=== PATIENT | female | born 1985 | race Caucasian/White ===

== ENCOUNTER 2017-12-12 16:42 | Emergency (ER) | payer OTHER, MEDICAID, SELFPAY ==
[2017-12-12 17:03] VITALS: BP 122/79; PULSE 56; RESP 16; TEMP 37.1; O2SAT 98; BMI 24.2
--- NOTE | 2017-12-12 18:38 | DI.CT.S_ITS ---
PROCEDURE: CT ABDOMEN PELVIS W CON INDICATIONS: 32 year-old female with abdominal pain, and prior umbilical and epigastric hernia repairs. TECHNIQUE: After the administration of intravenous contrast, 5 mm thick sections acquired from the diaphragm to the symphysis. 5 mm coronal and sagittal reformats were acquired. For radiation dose reduction, the following was used: automated exposure control, adjustment of mA and/or kV according to patient size. COMPARISON: [facility], CT, ABDOMEN/PELVIS WITH CONTRAST, 09/15/2017, 5:39. FINDINGS: Image quality: Excellent. ABDOMEN: Lung bases: Lung bases are clear. Heart size is normal. Solid organs: Liver is normal in size, with newly apparent 1.4 cm anterior left hepatic lobe enhancing lesion on image 26. Gallbladder is contracted at the time of scan. Biliary system is non dilated. Pancreas enhances normally. Spleen is normal in size and enhancement. No adrenal nodules. Kidneys demonstrate normal size and enhancement, without hydronephrosis. Peritoneum and bowel: Bowel loops demonstrate normal wall thickness and caliber. The appendix appears normal. No free fluid or air. Nodes and vessels: No retroperitoneal or mesenteric adenopathy by size criteria. Aorta and inferior vena cava are normal in size. Miscellaneous: Patient is status post interval repair of periumbilical ventral hernia, with localized fat stranding at the surgical site on axial image 33. PELVIS: Genitourinary: Bladder wall thickness is normal. Uterus and ovaries are normal in size. Previously noted dominant right ovarian cyst has resolved. 1.8 cm left ovarian corpus luteal cyst is incidentally noted. Miscellaneous: No inguinal hernias or adenopathy. Bones: No suspicious bony lesions. No vertebral body compression fractures. IMPRESSION: 1. Localized fat stranding at the periumbilical region, presumably reflecting recent ventral hernia repair. As such, superimposed surgical site infection cannot be excluded based on imaging appearances. No residual or recurrent ventral hernias. 2. 1.4 cm anterior left hepatic lobe enhancing lesion appears new since September 2017, of uncertain etiology. Consider further characterization with outpatient pre- and postcontrast liver protocol abdominal MRI, utilizing Eovist contrast. Dictated by: Neeraj Carrillo M.D. on 12/12/2017 at 20:01 Approved by: Neeraj Carrillo M.D. on 12/12/2017 at 20:09
--- NOTE | 2017-12-12 18:40 | ED.ABDPAIN ---
HPI - Abdominal Pain <SHRADDHA Loera - Last Filed: 12/12/17 20:45> General Chief Complaint: Abdominal Pain Stated Complaint: ABDOMINAL PAIN Time Seen by Provider: 12/12/17 18:32 Source: patient Mode of arrival: ambulatory Limitations: no limitations History of Present Illness MD complaint: abdominal pain Onset (ago): week(s) (2) Pain Consistency: intermittent Location: periumbilical Severity: similar to previous episodes Quality: cramping and sharp Radiation: other (shoots out to both side of belly button) Relieving factors: nothing Exacerbating factors: bowel movement and movement Context: recent surgery/procedure (had hernia surgery on 11/24 at [facility]) Associated symptoms: nausea Related Data Home Medications Medication Instructions Recorded Confirmed albuterol sulfate #0 09/15/17 fexofenadine #0 09/15/17 Previous Rx's Medication Instructions Recorded hydrocodone-acetaminophen [[place]] 1 tab PO Q6HP PRN #10 tab 09/15/17 tramadol [Ultram] 50 mg PO Q6H PRN #20 tab 12/12/17 Allergies Allergy/AdvReac Type Severity Reaction Status Date / Time clindamycin Allergy Severe Rash Verified 12/12/17 18:51 diphtheria,pertussis Allergy Unknown Unverified 12/12/17 18:51 (acell),tetanu [From KINRIX (PF)] diphtheria,pertussis Allergy Unknown Unverified 12/12/17 18:51 (acellular),te [From DAPTACEL (PEDIATRIC)] Haemophilus B polysaccharide Allergy Unknown Unverified 10/17/17 12:26 conj w [From TRIHIBIT] hepatitis B virus vaccine, Allergy Unknown Unverified 10/17/17 12:26 recombin [From PEDIARIX] latex [LATEX] Allergy Unknown Unverified 12/12/17 18:51 Penicillins [PENICILLINS] Allergy Unknown Unverified 12/12/17 18:51 tetanus and diphtheria Allergy Unknown Unverified 12/12/17 18:51 toxoids [From DECAVAC (PF)] tioconazole Allergy Unknown Unverified 12/12/17 18:51 [From MONISTAT 1 (TIOCONAZOLE)] Review of Systems <SHRADDHA Loera - Last Filed: 12/12/17 20:45> Review of Systems All systems reviewed & are unremarkable except as noted in HPI and below Constitutional Reports system reviewed and no additional complaints, except as docu and Denies fever(s) Cardiovascular Denies chest pain, Denies chest pain at rest, Denies chest pain with activity, Denies edema and Denies dyspnea Respiratory Denies dyspnea Gastrointestinal Gastrointestinal: Reports abdominal pain, Denies melena, Denies hematochezia, Denies diarrhea, Reports nausea, Denies vomiting and Denies hematemesis Genitourinary Reports as per HPI, Denies hematuria, Denies difficulty voiding, Denies dyspareunia, Denies pelvic pain and Denies flank pain Musculoskeletal Denies back pain Exam <SHRADDHA Loera - Last Filed: 12/12/17 20:45> Initial Vital Signs Initial Vital Signs: Vital Signs Temperature 98.8 F 12/12/17 17:03 Pulse Rate 56 L 12/12/17 17:03 Respiratory Rate 16 12/12/17 17:03 Blood Pressure 122/79 H 12/12/17 17:03 Pulse Oximetry 98 12/12/17 17:03 Const General: cooperative, healthy appearing, well developed, well groomed, anxious, No ill appearing, No intoxicated appearing and well hydrated Nutritional Appearance: well nourished Orientation: alert, awake, oriented x3 and not confused [facility] Head: normocephalic and atraumatic Ears: external ears normal Nose: external nose normal Face and sinus: face symmetric Mouth: oral mucosae normal and moist mucous membranes Teeth and gingiva: dentition normal Eyes General: appearance normal, both eyes and all related structures Eyelids: eyelids normal Conjunctivae: conjunctivae normal Sclera: sclerae normal Pupils: PERRL EOM: EOM intact bilaterally Neck Neck: normal visual inspection, full ROM, trachea midline and supple Chest Chest: normal inspection of the chest Resp Effort & Inspection: normal respiratory effort, able to speak in complete sentences, no respiratory distress and no use of accessory muscles Auscultation: clear to auscultation bilaterally, no rales, no rhonchi and no wheezes Cardio Rate: regular rate Rhythm: regular rhythm Heart Sounds: no click, no gallops, no murmurs and no rubs Pulses: normal peripheral pulses GI Inspection: non-distended and incision (healing surgical incision at umbilicus without s/s of infection, no erythema, no swelling, no dc, no descience) Palpation: soft, no hepatosplenomegaly, No guarding, No pulsatile mass and tender (umbilicus) Auscultation: normal bowel sounds Back/Spine/Pelvis Back: normal to inspection and No CVA tenderness Cervical Spine: cervical ROM normal and No pain with cervical ROM Thoracic/Lumbar Spine: thoracic and lumbar spine normal to inspection Skin General: no rashes or lesions noted, No jaundice and No petechiae Neuro General: alert, awake, oriented x3, gait normal and no focal motor deficits Cognition: normal cognition Speech: speech normal Gait: normal gait Motor: muscle tone normal throughout Extrem General: full ROM, no clubbing, cyanosis or edema, no pedal edema and no calf tenderness Psych Appearance: well kempt Mental Status: mental status grossly normal Attitude: cooperative Thought Content: normal and suicidality Judgment: judgment good <Marcy White DO - Last Filed: 12/13/17 04:34> Initial Vital Signs Initial Vital Signs: Vital Signs Temperature 98.8 F 12/12/17 17:03 Pulse Rate 56 L 12/12/17 17:03 Respiratory Rate 16 12/12/17 17:03 Blood Pressure 122/79 H 12/12/17 17:03 Pulse Oximetry 98 12/12/17 17:03 Course <SHRADDHA Loera - Last Filed: 12/12/17 20:45> Hospital Course: 2030 results and dc plan discussed, pt was made aware of f/u needed for spot on liver per ct Orders Ordered: Discontinued Medications Hydromorphone HCl (Dilaudid) 0.5 mg IV NOW ONE Stop: 12/12/17 20:12 Last Admin: 12/12/17 20:13 Dose: 0.5 mg Sodium Chloride (Normal Saline 0.9%) 1,000 mls @ 1,000 mls/hr IV BOLUS ONE Stop: 12/12/17 19:36 Last Infusion: 12/12/17 20:45 Dose: 0 mls/hr Admin: 12/12/17 18:53 Dose: 1,000 mls/hr Ketorolac Tromethamine (Toradol) 30 mg IV NOW ONE Stop: 12/12/17 18:38 Last Admin: 12/12/17 18:53 Dose: 30 mg Ondansetron HCl (Zofran) 4 mg IV NOW ONE Stop: 12/12/17 18:38 Last Admin: 12/12/17 18:53 Dose: 4 mg Vital Signs - 8 hr 12/12/17 20:50 12/12/17 20:55 Temperature 98.6 F Pulse Rate 75 84 Respiratory Rate 14 16 Blood Pressure 130/88 H Blood Pressure [Right Arm] 130/88 H Pulse Oximetry 98 98 <Marcy White DO - Last Filed: 12/13/17 04:34> Orders Ordered: Discontinued Medications Hydromorphone HCl (Dilaudid) 0.5 mg IV NOW ONE Stop: 12/12/17 20:12 Last Admin: 12/12/17 20:13 Dose: 0.5 mg Sodium Chloride (Normal Saline 0.9%) 1,000 mls @ 1,000 mls/hr IV BOLUS ONE Stop: 12/12/17 19:36 Last Infusion: 12/12/17 20:45 Dose: 0 mls/hr Admin: 12/12/17 18:53 Dose: 1,000 mls/hr Ketorolac Tromethamine (Toradol) 30 mg IV NOW ONE Stop: 12/12/17 18:38 Last Admin: 12/12/17 18:53 Dose: 30 mg Ondansetron HCl (Zofran) 4 mg IV NOW ONE Stop: 12/12/17 18:38 Last Admin: 12/12/17 18:53 Dose: 4 mg Vital Signs - 8 hr 12/12/17 20:50 12/12/17 20:55 Temperature 98.6 F Pulse Rate 75 84 Respiratory Rate 14 16 Blood Pressure 130/88 H Blood Pressure [Right Arm] 130/88 H Pulse Oximetry 98 98 MDM - Abdominal Pain <SHRADDHA Loera - Last Filed: 12/12/17 20:45> Differential Diagnosis Differential diagnosis: Likely abdominal pain, acute appendicitis, diverticulitis, pancreatitis, small bowel obstruction and other (hernia, post op infection, post op complication) Lab Data Attestation: I reviewed the patient's lab results. Result diagrams: 12/12/17 18:35 12/12/17 18:35 Lab Results 12/12/17 12/12/17 Range/Units 18:35 18:35 WBC 10.0 (4.5-11.0) X10^3/uL RBC 3.91 L (4.0-5.2) X10^6/uL Hgb 12.1 (12.0-16.0) g/dL Hct 35.7 L (36-46) % MCV 91.1 (80-100) fL MCH 31.0 (26-34) PG MCHC 34.0 (30-36) % RDW 13.6 (11.6-14.8) % Plt Count 221 (150-400) X10^3/uL Neut % (Auto) 67.5 (50-75) % Lymph % (Auto) 27.7 (25-40) % [place] % (Auto) 4.2 (3-14) % Eos % (Auto) 0.4 L (2-4) % Baso % (Auto) 0.2 (0-2) % Neut # (Auto) 6700 H (7806-9623) /uL Sodium 141 (137-145) mmol/L Potassium 4.0 (3.4-5.1) mmol/L Chloride 103 (98-107) mmol/L Carbon Dioxide 25 (22-32) mmol/L BUN 16 (7-17) mg/dL Creatinine 0.70 (0.52-1.04) mg/dL Estimated GFR > 60.0 (>60) mL/min BUN/Creatinine Ratio 22.9 H (6-22) Glucose 95 (70-100) mg/dL Calcium 9.4 (8.4-10.2) mg/dL Total Bilirubin 0.3 (0.2-1.3) mg/dL AST 26 (14-36) IU/L ALT 23 (9-52) IU/L Alkaline Phosphatase 56 (38-126) U/L Total Protein 7.8 (6.3-8.2) g/dL Albumin 4.7 (3.5-5.0) g/dL Globulin 3.1 (1.7-4.1) g/dL Albumin/Globulin Ratio 1.5 (1.0-2.8) Amylase 87 (30-110) U/L Lipase 142 (23-300) U/L Imaging Data CT scan - abdomen: Radiologist's impression: Patient: Betty Good MR#: [id number] : 1985 Acct:[id number] Age/Sex: 32 / F Date of Service: 12/12/17 Loc: ED Accession Number: [id number] Procedure: CT abdomen pelvis w con Ordering Provider: Livier Cruz PROCEDURE: CT ABDOMEN PELVIS W CON INDICATIONS: 32 year-old female with abdominal pain, and prior umbilical and epigastric hernia repairs. TECHNIQUE: After the administration of intravenous contrast, 5 mm thick sections acquired from the diaphragm to the symphysis. 5 mm coronal and sagittal reformats were acquired. For radiation dose reduction, the following was used: automated exposure control, adjustment of mA and/or kV according to patient size. COMPARISON: [facility], CT, ABDOMEN/PELVIS WITH CONTRAST, 09/15/2017, 5:39. FINDINGS: Image quality: Excellent. ABDOMEN: Lung bases: Lung bases are clear. Heart size is normal. Solid organs: Liver is normal in size, with newly apparent 1.4 cm anterior left hepatic lobe enhancing lesion on image 26. Gallbladder is contracted at the time of scan. Biliary system is non dilated. Pancreas enhances normally. Spleen is normal in size and enhancement. No adrenal nodules. Kidneys demonstrate normal size and enhancement, without hydronephrosis. Peritoneum and bowel: Bowel loops demonstrate normal wall thickness and caliber. The appendix appears normal. No free fluid or air. Nodes and vessels: No retroperitoneal or mesenteric adenopathy by size criteria. Aorta and inferior vena cava are normal in size. Miscellaneous: Patient is status post interval repair of periumbilical ventral hernia, with localized fat stranding at the surgical site on axial image 33. PELVIS: Genitourinary: Bladder wall thickness is normal. Uterus and ovaries are normal in size. Previously noted dominant right ovarian cyst has resolved. 1.8 cm left ovarian corpus luteal cyst is incidentally noted. Miscellaneous: No inguinal hernias or adenopathy. Bones: No suspicious bony lesions. No vertebral body compression fractures. IMPRESSION: 1. Localized fat stranding at the periumbilical region, presumably reflecting recent ventral hernia repair. As such, superimposed surgical site infection cannot be excluded based on imaging appearances. No residual or recurrent ventral hernias. 2. 1.4 cm anterior left hepatic lobe enhancing lesion appears new since September 2017, of uncertain etiology. Consider further characterization with outpatient pre- and postcontrast liver protocol abdominal MRI, utilizing Eovist contrast. Dictated by: Neeraj Carrillo M.D. on 12/12/2017 at 20:01 Approved by: Neeraj Carrillo M.D. on 12/12/2017 at 20:09 <Marcy White DO - Last Filed: 12/13/17 04:34> Lab Data Lab Results 12/12/17 12/12/17 Range/Units 18:35 18:35 WBC 10.0 (4.5-11.0) X10^3/uL RBC 3.91 L (4.0-5.2) X10^6/uL Hgb 12.1 (12.0-16.0) g/dL Hct 35.7 L (36-46) % MCV 91.1 (80-100) fL MCH 31.0 (26-34) PG MCHC 34.0 (30-36) % RDW 13.6 (11.6-14.8) % Plt Count 221 (150-400) X10^3/uL Neut % (Auto) 67.5 (50-75) % Lymph % (Auto) 27.7 (25-40) % [place] % (Auto) 4.2 (3-14) % Eos % (Auto) 0.4 L (2-4) % Baso % (Auto) 0.2 (0-2) % Neut # (Auto) 6700 H (1881-6444) /uL Sodium 141 (137-145) mmol/L Potassium 4.0 (3.4-5.1) mmol/L Chloride 103 (98-107) mmol/L Carbon Dioxide 25 (22-32) mmol/L BUN 16 (7-17) mg/dL Creatinine 0.70 (0.52-1.04) mg/dL Estimated GFR > 60.0 (>60) mL/min BUN/Creatinine Ratio 22.9 H (6-22) Glucose 95 (70-100) mg/dL Calcium 9.4 (8.4-10.2) mg/dL Total Bilirubin 0.3 (0.2-1.3) mg/dL AST 26 (14-36) IU/L ALT 23 (9-52) IU/L Alkaline Phosphatase 56 (38-126) U/L Total Protein 7.8 (6.3-8.2) g/dL Albumin 4.7 (3.5-5.0) g/dL Globulin 3.1 (1.7-4.1) g/dL Albumin/Globulin Ratio 1.5 (1.0-2.8) Amylase 87 (30-110) U/L Lipase 142 (23-300) U/L Discharge Plan Departure Patient Disposition: Home, Self-Care Clinical Impression: Abdominal pain Discharge Date/Time: 12/12/17 20:56 Interventions: ED Discharge Assessment Last Done: 12/12/17 20:55 Instructions: DI for Abdominal Pain-Adult Prescriptions: New tramadol [Ultram] 50 mg tablet 50 mg PO Q6H PRN (Reason: pain) Qty: 20 RF: 0 No Action albuterol sulfate 0.63 MG/3 ML solution for nebulization Qty: 0 RF: 0 fexofenadine 30 MG/5 ML suspension Qty: 0 RF: 0 hydrocodone-acetaminophen [[place]] 5 MG/325 MG tablet 1 tab PO Q6HP PRNQty: 10 RF: 0 Referrals: Goran Isaac MD [Physician] - (x2 days) <Marcy White DO - Last Filed: 12/13/17 04:34> Cosign ED Attending Jairature Attestation: I was immediately available in the department for consultation. Documentation has been reviewed. I agree with assessment and plan.
--- NOTE | 2017-12-12 18:47 | ED_ITS ---
HPI - Abdominal Pain <SHRADDHA Loera - Last Filed: 12/12/17 20:45> General Chief Complaint: Abdominal Pain Stated Complaint: ABDOMINAL PAIN Time Seen by Provider: 12/12/17 18:32 Source: patient Mode of arrival: ambulatory Limitations: no limitations History of Present Illness MD complaint: abdominal pain Onset (ago): week(s) (2) Pain Consistency: intermittent Location: periumbilical Severity: similar to previous episodes Quality: cramping and sharp Radiation: other (shoots out to both side of belly button) Relieving factors: nothing Exacerbating factors: bowel movement and movement Context: recent surgery/procedure (had hernia surgery on 11/24 at [facility]) Associated symptoms: nausea Related Data Home Medications Medication Instructions Recorded Confirmed albuterol sulfate #0 09/15/17 fexofenadine #0 09/15/17 Previous Rx's Medication Instructions Recorded hydrocodone-acetaminophen [[place]] 1 tab PO Q6HP PRN #10 tab 09/15/17 tramadol [Ultram] 50 mg PO Q6H PRN #20 tab 12/12/17 Allergies Allergy/AdvReac Type Severity Reaction Status Date / Time clindamycin Allergy Severe Rash Verified 12/12/17 18:51 diphtheria,pertussis Allergy Unknown Unverified 12/12/17 18:51 (acell),tetanu [From KINRIX (PF)] diphtheria,pertussis Allergy Unknown Unverified 12/12/17 18:51 (acellular),te [From DAPTACEL (PEDIATRIC)] Haemophilus B polysaccharide Allergy Unknown Unverified 10/17/17 12:26 conj w [From TRIHIBIT] hepatitis B virus vaccine, Allergy Unknown Unverified 10/17/17 12:26 recombin [From PEDIARIX] latex [LATEX] Allergy Unknown Unverified 12/12/17 18:51 Penicillins [PENICILLINS] Allergy Unknown Unverified 12/12/17 18:51 tetanus and diphtheria Allergy Unknown Unverified 12/12/17 18:51 toxoids [From DECAVAC (PF)] tioconazole Allergy Unknown Unverified 12/12/17 18:51 [From MONISTAT 1 (TIOCONAZOLE)] Review of Systems <SHRADDHA Loera - Last Filed: 12/12/17 20:45> Review of Systems All systems reviewed & are unremarkable except as noted in HPI and below Constitutional Reports system reviewed and no additional complaints, except as docu and Denies fever(s) Cardiovascular Denies chest pain, Denies chest pain at rest, Denies chest pain with activity, Denies edema and Denies dyspnea Respiratory Denies dyspnea Gastrointestinal Gastrointestinal: Reports abdominal pain, Denies melena, Denies hematochezia, Denies diarrhea, Reports nausea, Denies vomiting and Denies hematemesis Genitourinary Reports as per HPI, Denies hematuria, Denies difficulty voiding, Denies dyspareunia, Denies pelvic pain and Denies flank pain Musculoskeletal Denies back pain Exam <SHRADDHA Loera - Last Filed: 12/12/17 20:45> Initial Vital Signs Initial Vital Signs: Vital Signs Temperature 98.8 F 12/12/17 17:03 Pulse Rate 56 L 12/12/17 17:03 Respiratory Rate 16 12/12/17 17:03 Blood Pressure 122/79 H 12/12/17 17:03 Pulse Oximetry 98 12/12/17 17:03 Const General: cooperative, healthy appearing, well developed, well groomed, anxious, No ill appearing, No intoxicated appearing and well hydrated Nutritional Appearance: well nourished Orientation: alert, awake, oriented x3 and not confused [facility] Head: normocephalic and atraumatic Ears: external ears normal Nose: external nose normal Face and sinus: face symmetric Mouth: oral mucosae normal and moist mucous membranes Teeth and gingiva: dentition normal Eyes General: appearance normal, both eyes and all related structures Eyelids: eyelids normal Conjunctivae: conjunctivae normal Sclera: sclerae normal Pupils: PERRL EOM: EOM intact bilaterally Neck Neck: normal visual inspection, full ROM, trachea midline and supple Chest Chest: normal inspection of the chest Resp Effort & Inspection: normal respiratory effort, able to speak in complete sentences, no respiratory distress and no use of accessory muscles Auscultation: clear to auscultation bilaterally, no rales, no rhonchi and no wheezes Cardio Rate: regular rate Rhythm: regular rhythm Heart Sounds: no click, no gallops, no murmurs and no rubs Pulses: normal peripheral pulses GI Inspection: non-distended and incision (healing surgical incision at umbilicus without s/s of infection, no erythema, no swelling, no dc, no descience) Palpation: soft, no hepatosplenomegaly, No guarding, No pulsatile mass and tender (umbilicus) Auscultation: normal bowel sounds Back/Spine/Pelvis Back: normal to inspection and No CVA tenderness Cervical Spine: cervical ROM normal and No pain with cervical ROM Thoracic/Lumbar Spine: thoracic and lumbar spine normal to inspection Skin General: no rashes or lesions noted, No jaundice and No petechiae Neuro General: alert, awake, oriented x3, gait normal and no focal motor deficits Cognition: normal cognition Speech: speech normal Gait: normal gait Motor: muscle tone normal throughout Extrem General: full ROM, no clubbing, cyanosis or edema, no pedal edema and no calf tenderness Psych Appearance: well kempt Mental Status: mental status grossly normal Attitude: cooperative Thought Content: normal and suicidality Judgment: judgment good <Marcy White DO - Last Filed: 12/13/17 04:34> Initial Vital Signs Initial Vital Signs: Vital Signs Temperature 98.8 F 12/12/17 17:03 Pulse Rate 56 L 12/12/17 17:03 Respiratory Rate 16 12/12/17 17:03 Blood Pressure 122/79 H 12/12/17 17:03 Pulse Oximetry 98 12/12/17 17:03 Course <SHARDDHA Loera - Last Filed: 12/12/17 20:45> Hospital Course: 2030 results and dc plan discussed, pt was made aware of f/u needed for spot on liver per ct Orders Ordered: Discontinued Medications Hydromorphone HCl (Dilaudid) 0.5 mg IV NOW ONE Stop: 12/12/17 20:12 Last Admin: 12/12/17 20:13 Dose: 0.5 mg Sodium Chloride (Normal Saline 0.9%) 1,000 mls @ 1,000 mls/hr IV BOLUS ONE Stop: 12/12/17 19:36 Last Infusion: 12/12/17 20:45 Dose: 0 mls/hr Admin: 12/12/17 18:53 Dose: 1,000 mls/hr Ketorolac Tromethamine (Toradol) 30 mg IV NOW ONE Stop: 12/12/17 18:38 Last Admin: 12/12/17 18:53 Dose: 30 mg Ondansetron HCl (Zofran) 4 mg IV NOW ONE Stop: 12/12/17 18:38 Last Admin: 12/12/17 18:53 Dose: 4 mg Vital Signs - 8 hr 12/12/17 20:50 12/12/17 20:55 Temperature 98.6 F Pulse Rate 75 84 Respiratory Rate 14 16 Blood Pressure 130/88 H Blood Pressure [Right Arm] 130/88 H Pulse Oximetry 98 98 <Marcy White DO - Last Filed: 12/13/17 04:34> Orders Ordered: Discontinued Medications Hydromorphone HCl (Dilaudid) 0.5 mg IV NOW ONE Stop: 12/12/17 20:12 Last Admin: 12/12/17 20:13 Dose: 0.5 mg Sodium Chloride (Normal Saline 0.9%) 1,000 mls @ 1,000 mls/hr IV BOLUS ONE Stop: 12/12/17 19:36 Last Infusion: 12/12/17 20:45 Dose: 0 mls/hr Admin: 12/12/17 18:53 Dose: 1,000 mls/hr Ketorolac Tromethamine (Toradol) 30 mg IV NOW ONE Stop: 12/12/17 18:38 Last Admin: 12/12/17 18:53 Dose: 30 mg Ondansetron HCl (Zofran) 4 mg IV NOW ONE Stop: 12/12/17 18:38 Last Admin: 12/12/17 18:53 Dose: 4 mg Vital Signs - 8 hr 12/12/17 20:50 12/12/17 20:55 Temperature 98.6 F Pulse Rate 75 84 Respiratory Rate 14 16 Blood Pressure 130/88 H Blood Pressure [Right Arm] 130/88 H Pulse Oximetry 98 98 MDM - Abdominal Pain <SHRADDHA Loera - Last Filed: 12/12/17 20:45> Differential Diagnosis Differential diagnosis: Likely abdominal pain, acute appendicitis, diverticulitis, pancreatitis, small bowel obstruction and other (hernia, post op infection, post op complication) Lab Data Attestation: I reviewed the patient's lab results. Result diagrams: 12/12/17 18:35 12/12/17 18:35 Lab Results 12/12/17 12/12/17 Range/Units 18:35 18:35 WBC 10.0 (4.5-11.0) X10^3/uL RBC 3.91 L (4.0-5.2) X10^6/uL Hgb 12.1 (12.0-16.0) g/dL Hct 35.7 L (36-46) % MCV 91.1 (80-100) fL MCH 31.0 (26-34) PG MCHC 34.0 (30-36) % RDW 13.6 (11.6-14.8) % Plt Count 221 (150-400) X10^3/uL Neut % (Auto) 67.5 (50-75) % Lymph % (Auto) 27.7 (25-40) % [place] % (Auto) 4.2 (3-14) % Eos % (Auto) 0.4 L (2-4) % Baso % (Auto) 0.2 (0-2) % Neut # (Auto) 6700 H (0774-9583) /uL Sodium 141 (137-145) mmol/L Potassium 4.0 (3.4-5.1) mmol/L Chloride 103 (98-107) mmol/L Carbon Dioxide 25 (22-32) mmol/L BUN 16 (7-17) mg/dL Creatinine 0.70 (0.52-1.04) mg/dL Estimated GFR > 60.0 (>60) mL/min BUN/Creatinine Ratio 22.9 H (6-22) Glucose 95 (70-100) mg/dL Calcium 9.4 (8.4-10.2) mg/dL Total Bilirubin 0.3 (0.2-1.3) mg/dL AST 26 (14-36) IU/L ALT 23 (9-52) IU/L Alkaline Phosphatase 56 (38-126) U/L Total Protein 7.8 (6.3-8.2) g/dL Albumin 4.7 (3.5-5.0) g/dL Globulin 3.1 (1.7-4.1) g/dL Albumin/Globulin Ratio 1.5 (1.0-2.8) Amylase 87 (30-110) U/L Lipase 142 (23-300) U/L Imaging Data CT scan - abdomen: Radiologist's impression: Patient: Betty Good MR#: [id number] : 1985 Acct:[id number] Age/Sex: 32 / F Date of Service: 12/12/17 Loc: ED Accession Number: [id number] Procedure: CT abdomen pelvis w con Ordering Provider: Livier Cruz PROCEDURE: CT ABDOMEN PELVIS W CON INDICATIONS: 32 year-old female with abdominal pain, and prior umbilical and epigastric hernia repairs. TECHNIQUE: After the administration of intravenous contrast, 5 mm thick sections acquired from the diaphragm to the symphysis. 5 mm coronal and sagittal reformats were acquired. For radiation dose reduction, the following was used: automated exposure control, adjustment of mA and/or kV according to patient size. COMPARISON: [facility], CT, ABDOMEN/PELVIS WITH CONTRAST, 09/15/2017, 5:39. FINDINGS: Image quality: Excellent. ABDOMEN: Lung bases: Lung bases are clear. Heart size is normal. Solid organs: Liver is normal in size, with newly apparent 1.4 cm anterior left hepatic lobe enhancing lesion on image 26. Gallbladder is contracted at the time of scan. Biliary system is non dilated. Pancreas enhances normally. Spleen is normal in size and enhancement. No adrenal nodules. Kidneys demonstrate normal size and enhancement, without hydronephrosis. Peritoneum and bowel: Bowel loops demonstrate normal wall thickness and caliber. The appendix appears normal. No free fluid or air. Nodes and vessels: No retroperitoneal or mesenteric adenopathy by size criteria. Aorta and inferior vena cava are normal in size. Miscellaneous: Patient is status post interval repair of periumbilical ventral hernia, with localized fat stranding at the surgical site on axial image 33. PELVIS: Genitourinary: Bladder wall thickness is normal. Uterus and ovaries are normal in size. Previously noted dominant right ovarian cyst has resolved. 1.8 cm left ovarian corpus luteal cyst is incidentally noted. Miscellaneous: No inguinal hernias or adenopathy. Bones: No suspicious bony lesions. No vertebral body compression fractures. IMPRESSION: 1. Localized fat stranding at the periumbilical region, presumably reflecting recent ventral hernia repair. As such, superimposed surgical site infection cannot be excluded based on imaging appearances. No residual or recurrent ventral hernias. 2. 1.4 cm anterior left hepatic lobe enhancing lesion appears new since September 2017, of uncertain etiology. Consider further characterization with outpatient pre- and postcontrast liver protocol abdominal MRI, utilizing Eovist contrast. Dictated by: Neeraj Carrillo M.D. on 12/12/2017 at 20:01 Approved by: Neeraj Carrillo M.D. on 12/12/2017 at 20:09 <Marcy White DO - Last Filed: 12/13/17 04:34> Lab Data Lab Results 12/12/17 12/12/17 Range/Units 18:35 18:35 WBC 10.0 (4.5-11.0) X10^3/uL RBC 3.91 L (4.0-5.2) X10^6/uL Hgb 12.1 (12.0-16.0) g/dL Hct 35.7 L (36-46) % MCV 91.1 (80-100) fL MCH 31.0 (26-34) PG MCHC 34.0 (30-36) % RDW 13.6 (11.6-14.8) % Plt Count 221 (150-400) X10^3/uL Neut % (Auto) 67.5 (50-75) % Lymph % (Auto) 27.7 (25-40) % [place] % (Auto) 4.2 (3-14) % Eos % (Auto) 0.4 L (2-4) % Baso % (Auto) 0.2 (0-2) % Neut # (Auto) 6700 H (2596-8119) /uL Sodium 141 (137-145) mmol/L Potassium 4.0 (3.4-5.1) mmol/L Chloride 103 (98-107) mmol/L Carbon Dioxide 25 (22-32) mmol/L BUN 16 (7-17) mg/dL Creatinine 0.70 (0.52-1.04) mg/dL Estimated GFR > 60.0 (>60) mL/min BUN/Creatinine Ratio 22.9 H (6-22) Glucose 95 (70-100) mg/dL Calcium 9.4 (8.4-10.2) mg/dL Total Bilirubin 0.3 (0.2-1.3) mg/dL AST 26 (14-36) IU/L ALT 23 (9-52) IU/L Alkaline Phosphatase 56 (38-126) U/L Total Protein 7.8 (6.3-8.2) g/dL Albumin 4.7 (3.5-5.0) g/dL Globulin 3.1 (1.7-4.1) g/dL Albumin/Globulin Ratio 1.5 (1.0-2.8) Amylase 87 (30-110) U/L Lipase 142 (23-300) U/L Discharge Plan Departure Patient Disposition: Home, Self-Care Clinical Impression: Abdominal pain Discharge Date/Time: 12/12/17 20:56 Interventions: ED Discharge Assessment Last Done: 12/12/17 20:55 Instructions: DI for Abdominal Pain-Adult Prescriptions: New tramadol [Ultram] 50 mg tablet 50 mg PO Q6H PRN (Reason: pain) Qty: 20 RF: 0 No Action albuterol sulfate 0.63 MG/3 ML solution for nebulization Qty: 0 RF: 0 fexofenadine 30 MG/5 ML suspension Qty: 0 RF: 0 hydrocodone-acetaminophen [[place]] 5 MG/325 MG tablet 1 tab PO Q6HP PRNQty: 10 RF: 0 Referrals: Goran Isaac MD [Physician] - (x2 days) <Marcy White DO - Last Filed: 12/13/17 04:34> Cosign ED Attending Jairature Attestation: I was immediately available in the department for consultation. Documentation has been reviewed. I agree with assessment and plan.
[2017-12-12] MEDS: SODIUM CHLORIDE 0.9% 1,000 ML 1000 ML IV (18:53)
[2017-12-12] MEDS: ONDANSETRON 4 MG/2 ML INJ IV (18:53)
[2017-12-12] MEDS: KETOROLAC 60 MG/2 ML VIAL 30 MG IV (18:53)
[2017-12-12 18:54] LABS: Add Manual Diff / Slide Review NO; Basophils Percent Auto 0.2 % (0-2); Eosinophils Percent Auto 0.4 % (2-4); Hematocrit 35.7 % (36-46); Hemoglobin 12.1 g/dL (12.0-16.0); Lymphocytes Percent Auto 27.7 % (25-40); Mean Corpuscular Volume 91.1 fL (80-100); Monocytes Percent Auto 4.2 % (3-14); Neutrophils Absolute Auto 6700 /uL (3000-5900); Neutrophils Percent Auto 67.5 % (50-75); Platelet Count 221 X10^3/uL (150-400); Red Blood Cell Count 3.91 X10^6/uL (4.0-5.2); Red Cell Distribution Width 13.6 % (11.6-14.8)
[2017-12-12 18:59] VITALS: BP 129/80; PULSE 77; RESP 16; O2SAT 100
[2017-12-12 19:02] LABS: Alanine Aminotransferase 23 IU/L (9-52); Albumin 4.7 g/dL (3.5-5.0); Albumin Globulin Ratio 1.5 (1.0-2.8); Alkaline Phosphatase 56 U/L (38-126); Amylase 87 U/L (30-110); Aspartate Aminotransferase 26 IU/L (14-36); BUN Creatinine Ratio 22.9 (6-22); Bilirubin Total 0.3 mg/dL (0.2-1.3); Blood Urea Nitrogen 16 mg/dL (7-17); Calcium 9.4 mg/dL (8.4-10.2); Carbon Dioxide 25 mmol/L (22-32); Chloride 103 mmol/L (98-107); Estimated Glomerular Filt Rate > 60.0 mL/min (>60); Globulin 3.1 g/dL (1.7-4.1); Glucose 95 mg/dL (70-100); HEMOLYSIS 30 (0-50); Lipase 142 U/L (23-300); Sodium 141 mmol/L (137-145); Total Protein 7.8 g/dL (6.3-8.2)
[2017-12-12] MEDS: HYDROMORPHONE 0.5 MG INJ IV (20:13)
[2017-12-12 20:50] VITALS: BP 130/88; PULSE 75; RESP 14; O2SAT 98
[2017-12-12 20:55] VITALS: BP 130/88; PULSE 84; RESP 16; TEMP 37; O2SAT 98
== END 2017-12-12 20:56 | disposition home or self-care (01) ==
PROVIDERS: Emergency Provider Nurse Practitioner
DX: R10.9 Unspecified abdominal pain (principal)
CPT/HCPCS: 36591; 74177; 80053; 81003; 81025; 82150; 83690; 85025; 96361; 96374; 96375; 99283; 99285; J1170; J1885; J2405; Q9967

== ENCOUNTER 2018-01-01 10:46 | Emergency (ER) | payer OTHER, SELFPAY ==
[2018-01-01 10:53] VITALS: BP 121/69; PULSE 79; RESP 15; TEMP 37.3; O2SAT 99; BMI 24.2
--- NOTE | 2018-01-01 11:02 | ED.ABDPAIN ---
HPI - Abdominal Pain General Chief Complaint: Abdominal Pain Stated Complaint: PAIN UNDER RIBS RIGHT SIDE Time Seen by Provider: 01/01/18 10:46 Source: patient Mode of arrival: ambulatory Limitations: no limitations History of Present Illness HPI narrative: 32-year-old female here for evaluation of right upper quadrant abdominal pain. Patient states that it started last evening and has continued since then. States that she has had nausea but no vomiting. No fevers. Not worse with eating. No urinary symptoms. Did have a recent surgery to repair an umbilical and epigastric hernia. Was seen here in the emergency department on the of this month for worsening of those symptoms however she states that the symptoms that brought her in on the have almost completely resolved. No other abdominal surgeries. Related Data Home Medications Medication Instructions Recorded Confirmed albuterol sulfate 1 neb INHALATION DIRECTED #0 09/15/17 01/01/18 Nexium 1 cap PO BEDTIME 01/01/18 01/01/18 buspirone 15 mg PO BEDTIME 01/01/18 01/01/18 citalopram 20 mg PO DAILY 01/01/18 01/01/18 fexofenadine 1 tab PO DAILY 01/01/18 01/01/18 meloxicam 15 mg PO DAILY 01/01/18 01/01/18 norethindrone-e.estradiol-iron 1 tab PO QPM 01/01/18 01/01/18 ondansetron 4 mg PO PRN PRN 01/01/18 01/01/18 sumatriptan succinate 1 tab PO DIRECTED PRN 01/01/18 01/01/18 Allergies Allergy/AdvReac Type Severity Reaction Status Date / Time clindamycin Allergy Severe Rash Verified 01/01/18 10:53 diphtheria,pertussis Allergy Unknown Verified 01/01/18 10:53 (acell),tetanu [From KINRIX (PF)] diphtheria,pertussis Allergy Unknown Verified 01/01/18 10:53 (acellular),te [From DAPTACEL (PEDIATRIC)] Haemophilus B polysaccharide Allergy Unknown Verified 01/01/18 10:53 conj w [From TRIHIBIT] hepatitis B virus vaccine, Allergy Unknown Verified 01/01/18 10:53 recombin [From PEDIARIX] latex [LATEX] Allergy Unknown Verified 01/01/18 10:53 Penicillins [PENICILLINS] Allergy Unknown Verified 01/01/18 10:53 tetanus and diphtheria Allergy Unknown Verified 01/01/18 10:53 toxoids [From DECAVAC (PF)] tioconazole Allergy Unknown Verified 01/01/18 10:53 [From MONISTAT 1 (TIOCONAZOLE)] Review of Systems Constitutional Denies fatigue, Denies fever(s) and Denies weakness Cardiovascular Denies chest pain, Denies palpitations and Denies dyspnea Respiratory Denies cough, Denies pain on inspiration and Denies dyspnea Gastrointestinal Gastrointestinal: Denies constipation, Denies heartburn, Denies diarrhea, Reports nausea and Denies vomiting Comments: Right upper quadrant abdominal pain Genitourinary Denies dysuria and Denies flank pain Musculoskeletal Denies myalgias and Denies arthralgias Integumentary/Breasts Denies lesions and Denies rash Neurologic Denies confusion and Denies weakness Psychiatric Denies confusion Endocrine Denies fatigue and Denies palpitations Hematologic/Lymphatic Denies easy bleeding and Denies easy bruising Exam Initial Vital Signs Initial Vital Signs: Vital Signs Temperature 99.1 F 01/01/18 10:53 Pulse Rate 79 01/01/18 10:53 Respiratory Rate 15 01/01/18 10:53 Blood Pressure 121/69 H 01/01/18 10:53 Pulse Oximetry 99 01/01/18 10:53 Const General: cooperative, healthy appearing, comfortable, well developed and well groomed [facility] Head: normal to inspection and normocephalic Resp Effort & Inspection: normal respiratory effort Auscultation: clear to auscultation bilaterally Cardio Rate: regular rate Rhythm: regular rhythm GI Inspection: non-distended Palpation: No soft, No firm and tender (Right upper quadrant abdominal pain with a Cornejo sign) Back/Spine/Pelvis Back: No CVA tenderness Skin Lesions: no lesions Rashes: no rashes Neuro General: alert, awake and oriented x3 Cognition: normal cognition Speech: speech normal Motor: muscle tone normal throughout Extrem General: normal to inspection and capillary refill normal Course Orders Ordered: ED Orders 01/01/18 11:08 US abdomen complete Stat 01/01/18 11:22 Complete Blood Count AUTO DIFF Stat Comprehensive Metabolic Panel Stat Lipase Stat 01/01/18 13:32 CT abdomen pelvis w con Stat Discontinued Medications Morphine Sulfate (Morphine) 4 mg IV NOW ONE Stop: 01/01/18 11:08 Last Admin: 01/01/18 11:23 Dose: 4 mg Morphine Sulfate (Morphine) 4 mg IV NOW ONE Stop: 01/01/18 14:07 Last Admin: 01/01/18 14:11 Dose: 4 mg Ondansetron HCl (Zofran) 4 mg IV NOW ONE Stop: 01/01/18 11:08 Last Admin: 01/01/18 11:23 Dose: 4 mg Ondansetron HCl (Zofran) 4 mg IV NOW ONE Stop: 01/01/18 14:08 Last Admin: 01/01/18 14:11 Dose: 4 mg Vital Signs - 8 hr 01/01/18 10:53 01/01/18 11:58 01/01/18 13:00 Temperature 99.1 F 97.6 F Pulse Rate 79 76 75 Respiratory Rate 15 16 18 Blood Pressure 121/69 H Blood Pressure [Right Arm] 110/67 114/69 Pulse Oximetry 99 99 100 01/01/18 14:28 Temperature 98.8 F Pulse Rate 82 Respiratory Rate 16 Blood Pressure Blood Pressure [Right Arm] 123/71 H Pulse Oximetry 100 MDM - Abdominal Pain Medical Records Attestation: I reviewed the patient's medical records. Lab Data Attestation: I reviewed the patient's lab results. Result diagrams: 01/01/18 11:22 01/01/18 11:22 Lab Results 01/01/18 01/01/18 Range/Units 11:22 11:22 WBC 9.3 (4.5-11.0) X10^3/uL RBC 4.00 (4.0-5.2) X10^6/uL Hgb 12.2 (12.0-16.0) g/dL Hct 36.5 (36-46) % MCV 91.4 (80-100) fL MCH 30.6 (26-34) PG MCHC 33.5 (30-36) % RDW 13.6 (11.6-14.8) % Plt Count 197 (150-400) X10^3/uL Neut % (Auto) 73.7 (50-75) % Lymph % (Auto) 20.8 L (25-40) % Carter % (Auto) 4.7 (3-14) % Eos % (Auto) 0.6 L (2-4) % Baso % (Auto) 0.2 (0-2) % Neut # (Auto) 6900 H (8020-2363) /uL Sodium 140 (137-145) mmol/L Potassium 4.1 (3.4-5.1) mmol/L Chloride 102 (98-107) mmol/L Carbon Dioxide 26 (22-32) mmol/L BUN 12 (7-17) mg/dL Creatinine 0.80 (0.52-1.04) mg/dL Estimated GFR > 60.0 (>60) mL/min BUN/Creatinine Ratio 15.0 (6-22) Glucose 103 H (70-100) mg/dL Calcium 9.6 (8.4-10.2) mg/dL Total Bilirubin 0.4 (0.2-1.3) mg/dL AST 27 (14-36) IU/L ALT 24 (9-52) IU/L Alkaline Phosphatase 82 (38-126) U/L Total Protein 7.8 (6.3-8.2) g/dL Albumin 4.7 (3.5-5.0) g/dL Globulin 3.1 (1.7-4.1) g/dL Albumin/Globulin Ratio 1.5 (1.0-2.8) Lipase 67 (23-300) U/L Imaging Data CT scan - abdomen: Radiologist's impression: PROCEDURE: CT ABDOMEN PELVIS W CON INDICATIONS: 32 year-old female with right upper quadrant abdominal pain. TECHNIQUE: After the administration of oral and intravenous contrast, 5 mm thick sections acquired from the diaphragms to the symphysis. 5 mm thick coronal and sagittal reformats were performed. For radiation dose reduction, the following was used: automated exposure control, adjustment of mA and/or kV according to patient size. COMPARISON: [facility], US, US ABDOMEN COMPLETE, 01/01/2018, 11:28. [facility], CT, CT ABDOMEN PELVIS W CON, 12/12/2017, 19:27. [facility], CT, ABDOMEN/PELVIS WITH CONTRAST, 09/15/2017, 5:39. FINDINGS: Image quality: Excellent. ABDOMEN: Lung bases: Lung bases are clear. Heart size is normal. Solid organs: Liver is normal in size, with amorphous 1.5 cm anterior left hepatic lobe enhancing lesion again noted. Gallbladder wall thickness is normal. Biliary system is non-dilated. Pancreas enhances normally. Spleen is normal in size and enhancement. No adrenal nodules. Kidneys are normal in size and enhancement, without hydronephrosis. Peritoneum and bowel: Stomach, small bowel, and colon loops are normal in caliber and wall thickness. The appendix appears normal. There is trace physiologic free pelvic fluid. No free air. Nodes and vessels: No retroperitoneal or mesenteric adenopathy. Aorta and inferior vena cava are normal in caliber. Miscellaneous: No ventral hernias. PELVIS: Genitourinary: Bladder wall thickness is normal. Uterus and ovaries are normal in size. Miscellaneous: No inguinal hernias or adenopathy. Bones: No suspicious bony lesions. No vertebral body compression fractures. IMPRESSION: 1. No acute findings to explain right upper quadrant abdominal pain. 2. Indeterminate 1.5 cm anterior left hepatic lobe enhancing lesion again noted, new since September 2017. Consider further characterization with outpatient pre- and postcontrast liver protocol abdominal MRI, utilizing Eovist contrast. Dictated by: Neeraj Carrillo M.D. on 01/01/2018 at 14:45 US - abdomen: Radiologist's impression: PROCEDURE: US ABDOMEN COMPLETE INDICATIONS: 32 year-old female with right upper quadrant abdominal pain. TECHNIQUE: Real-time scanning was performed of the abdominal and retroperitoneal organs, with image documentation. COMPARISON: [facility], CT, CT ABDOMEN PELVIS W CON, 12/12/2017, 19:27. [facility], CT, ABDOMEN/PELVIS WITH CONTRAST, 09/15/2017, 5:39. FINDINGS: Liver: Liver is normal in size and homogeneous in echotexture. Gallbladder: No gallstones or biliary sludge. Gallbladder wall thickness is normal. No pericholecystic fluid. Biliary ducts: Intrahepatic bile ducts are non-dilated. Extrahepatic bile duct caliber measures 4 mm. Normal is 6-7 mm or less in diameter, or 10 mm or less post-cholecystectomy. Pancreas: Visualized portions of the pancreas are sonographically normal. Spleen: Spleen is normal in size and homogeneous in echotexture. Kidneys: Kidneys are normal in size and echotexture. Right kidney measures 11.2 cm long; left kidney measures 10.7 cm long. No hydronephrosis or nephrolithiasis. No solid masses. Aorta: Visualized aorta is normal in caliber at less than 3 cm. Iliacs: Obscured by bowel gas. IVC: Intrahepatic inferior vena cava is patent. Miscellaneous: No free abdominal fluid. IMPRESSION: 1. No sonographic explanation for right upper quadrant abdominal pain. 2. The indeterminate 1.4 cm anterior left hepatic lobe enhancing lesion on recent CT scan is not visible sonographically. Dictated by: Neeraj Carrillo M.D. on 01/01/2018 at 11:48 Approved by: Neeraj Carrillo M.D. on 01/01/2018 at 11:51 MDM Narrative Medical decision making narrative: Patient with negative right upper quadrant ultrasound. Unremarkable labs. No signs of kidney stone or urinary tract infections. History of physical exam is not consistent with pyelonephritis. Has an MRI scheduled on this week for evaluation of the liver findings. CT scan negative for acute pathology. No changes in the skin concerning for zoster. Patient reports some improvement with the symptoms after the pain medication here in the emergency department. Will hold on further workup for now. Patient does have medication at home to control the symptoms and also nausea medication. She was given return precautions. She was instructed she needs to follow up with her primary doctor to discuss further workup. She expressed understanding and agreement with plan Discharge Plan Departure Patient Disposition: Home, Self-Care Clinical Impression: Abdominal pain Instructions: DI for Abdominal Pain-Adult Activity Restrictions/Additional Instructions: I would continue all of your medications as directed. Keep your scheduled medical appointment on for the MRI. Call your primary care doctor today for a follow-up to discuss indications for specialist referral. Return to the emergency department for any new symptoms. Prescriptions: No Action albuterol sulfate 0.63 MG/3 ML solution for nebulization 1 neb Inhalation DIRECTED Qty: 0 RF: 0 meloxicam 15 mg tablet 15 mg PO DAILY RF: 0 norethindrone-e.estradiol-iron 1 mg-20 mcg (21)/75 mg (7) tablet 1 tab PO QPM RF: 0 citalopram 20 mg tablet 20 mg PO DAILY RF: 0 ondansetron 4 mg tablet,disintegrating 4 mg PO PRN PRN (Reason: Nausea) RF: 0 sumatriptan succinate 100 mg tablet 1 tab PO DIRECTED PRN (Reason: Migraine Headache) RF: 0 fexofenadine 1 tab PO DAILY RF: 0 buspirone 15 mg Tablet 15 mg PO BEDTIME RF: 0 Nexium 1 cap PO BEDTIME RF: 0
--- NOTE | 2018-01-01 11:08 | DI.US.S_ITS ---
PROCEDURE: US ABDOMEN COMPLETE INDICATIONS: 32 year-old female with right upper quadrant abdominal pain. TECHNIQUE: Real-time scanning was performed of the abdominal and retroperitoneal organs, with image documentation. COMPARISON: [facility], CT, CT ABDOMEN PELVIS W CON, 12/12/2017, 19:27. [facility], CT, ABDOMEN/PELVIS WITH CONTRAST, 09/15/2017, 5:39. FINDINGS: Liver: Liver is normal in size and homogeneous in echotexture. Gallbladder: No gallstones or biliary sludge. Gallbladder wall thickness is normal. No pericholecystic fluid. Biliary ducts: Intrahepatic bile ducts are non-dilated. Extrahepatic bile duct caliber measures 4 mm. Normal is 6-7 mm or less in diameter, or 10 mm or less post-cholecystectomy. Pancreas: Visualized portions of the pancreas are sonographically normal. Spleen: Spleen is normal in size and homogeneous in echotexture. Kidneys: Kidneys are normal in size and echotexture. Right kidney measures 11.2 cm long; left kidney measures 10.7 cm long. No hydronephrosis or nephrolithiasis. No solid masses. Aorta: Visualized aorta is normal in caliber at less than 3 cm. Iliacs: Obscured by bowel gas. IVC: Intrahepatic inferior vena cava is patent. Miscellaneous: No free abdominal fluid. IMPRESSION: 1. No sonographic explanation for right upper quadrant abdominal pain. 2. The indeterminate 1.4 cm anterior left hepatic lobe enhancing lesion on recent CT scan is not visible sonographically. Dictated by: Neeraj Carrillo M.D. on 01/01/2018 at 11:48 Approved by: Neeraj Carrillo M.D. on 01/01/2018 at 11:51
[2018-01-01] MEDS: ONDANSETRON 4 MG/2 ML INJ IV ×2 (11:23→14:11)
[2018-01-01] MEDS: MORPHINE 4 MG/ML INJ IV ×2 (11:23→14:11)
--- NOTE | 2018-01-01 11:28 | PC.NURSE ---
2 previous attempts by primary RN
[2018-01-01 11:30] LABS: Add Manual Diff / Slide Review NO; Basophils Percent Auto 0.2 % (0-2); Eosinophils Percent Auto 0.6 % (2-4); Hematocrit 36.5 % (36-46); Hemoglobin 12.2 g/dL (12.0-16.0); Lymphocytes Percent Auto 20.8 % (25-40); Mean Corpuscular HGB Conc 33.5 % (30-36); Mean Corpuscular Hemoglobin 30.6 PG (26-34); Mean Corpuscular Volume 91.4 fL (80-100); Monocytes Percent Auto 4.7 % (3-14); Neutrophils Absolute Auto 6900 /uL (3000-5900); Neutrophils Percent Auto 73.7 % (50-75); Platelet Count 197 X10^3/uL (150-400); Red Cell Distribution Width 13.6 % (11.6-14.8); White Blood Cell Count 9.3 X10^3/uL (4.5-11.0)
[2018-01-01 11:41] LABS: Alanine Aminotransferase 24 IU/L (9-52); Albumin 4.7 g/dL (3.5-5.0); Albumin Globulin Ratio 1.5 (1.0-2.8); Alkaline Phosphatase 82 U/L (38-126); Aspartate Aminotransferase 27 IU/L (14-36); Bilirubin Total 0.4 mg/dL (0.2-1.3); Blood Urea Nitrogen 12 mg/dL (7-17); Calcium 9.6 mg/dL (8.4-10.2); Carbon Dioxide 26 mmol/L (22-32); Chloride 102 mmol/L (98-107); Estimated Glomerular Filt Rate > 60.0 mL/min (>60); Globulin 3.1 g/dL (1.7-4.1); Glucose 103 mg/dL (70-100); HEMOLYSIS 17 (0-50); Lipase 67 U/L (23-300); Potassium 4.1 mmol/L (3.4-5.1); Sodium 140 mmol/L (137-145); Total Protein 7.8 g/dL (6.3-8.2)
[2018-01-01 11:58] VITALS: BP 110/67; PULSE 76; RESP 16; TEMP 36.4; O2SAT 99
[2018-01-01 13:00] VITALS: BP 114/69; PULSE 75; RESP 18; O2SAT 100
--- NOTE | 2018-01-01 13:32 | DI.CT.S_ITS ---
PROCEDURE: CT ABDOMEN PELVIS W CON INDICATIONS: 32 year-old female with right upper quadrant abdominal pain. TECHNIQUE: After the administration of oral and intravenous contrast, 5 mm thick sections acquired from the diaphragms to the symphysis. 5 mm thick coronal and sagittal reformats were performed. For radiation dose reduction, the following was used: automated exposure control, adjustment of mA and/or kV according to patient size. COMPARISON: [facility], US, US ABDOMEN COMPLETE, 01/01/2018, 11:28. [facility], CT, CT ABDOMEN PELVIS W CON, 12/12/2017, 19:27. [facility], CT, ABDOMEN/PELVIS WITH CONTRAST, 09/15/2017, 5:39. FINDINGS: Image quality: Excellent. ABDOMEN: Lung bases: Lung bases are clear. Heart size is normal. Solid organs: Liver is normal in size, with amorphous 1.5 cm anterior left hepatic lobe enhancing lesion again noted. Gallbladder wall thickness is normal. Biliary system is non-dilated. Pancreas enhances normally. Spleen is normal in size and enhancement. No adrenal nodules. Kidneys are normal in size and enhancement, without hydronephrosis. Peritoneum and bowel: Stomach, small bowel, and colon loops are normal in caliber and wall thickness. The appendix appears normal. There is trace physiologic free pelvic fluid. No free air. Nodes and vessels: No retroperitoneal or mesenteric adenopathy. Aorta and inferior vena cava are normal in caliber. Miscellaneous: No ventral hernias. PELVIS: Genitourinary: Bladder wall thickness is normal. Uterus and ovaries are normal in size. Miscellaneous: No inguinal hernias or adenopathy. Bones: No suspicious bony lesions. No vertebral body compression fractures. IMPRESSION: 1. No acute findings to explain right upper quadrant abdominal pain. 2. Indeterminate 1.5 cm anterior left hepatic lobe enhancing lesion again noted, new since September 2017. Consider further characterization with outpatient pre- and postcontrast liver protocol abdominal MRI, utilizing Eovist contrast. Dictated by: Neeraj Carrillo M.D. on 01/01/2018 at 14:45 Approved by: Neeraj Carrillo M.D. on 01/01/2018 at 14:53
[2018-01-01 14:28] VITALS: BP 123/71; PULSE 82; RESP 16; TEMP 37.1; O2SAT 100
== END 2018-01-01 15:15 | disposition home or self-care (01) ==
PROVIDERS: Emergency Provider Emergency Medicine
DX: R10.9 Unspecified abdominal pain (principal)
CPT/HCPCS: 36591; 74177; 76700; 80053; 81003; 81025; 83690; 85025; 96374; 96375; 96376; 99283; 99284; J2270; J2405; Q9967

== ENCOUNTER → 2018-01-03 18:24 | Outpatient (CLI) | payer OTHER, MEDICAID, SELFPAY ==
--- NOTE | 2018-01-03 18:25 | DI.MRI.S_ITS ---
PROCEDURE: MR ABDOMEN WO/W CON INDICATIONS: 32 year-old female with indeterminate 1.5 cm enhancing lesion in the anterior left hepatic lobe on CT scans. TECHNIQUE: Coronal HASTE, axial 2D FLASH in- and [id number]; axial breath-hold T2 FSE. Dynamic axial VIBE during the administration of contrast; post-contrast coronal VIBE or 2D FLASH with fat saturation from the hepatic dome to the iliac crests. Optional diffusion weighted imaging and ADC may be performed. COMPARISON: [facility], CT, CT ABDOMEN PELVIS W CON, 01/01/2018, 14:26. [facility], US, US ABDOMEN COMPLETE, 01/01/2018, 11:28. [facility], CT, CT ABDOMEN PELVIS W CON, 12/12/2017, 19:27. [facility], CT, ABDOMEN/PELVIS WITH CONTRAST, 09/15/2017, 5:39. FINDINGS: Image quality: Several sequences are degraded by respiratory motion. Lung bases: No basal pleural effusions. Heart size is normal. Solid organs: Liver is normal in size, without fatty infiltration on in and out of phase images. Amorphous irregular 1.5 cm lesion is again noted within segment 3 of the liver near the falciform ligament, demonstrating mild T2 hyperintensity and restricted diffusion on precontrast images, with arterial phase hypervascularity and delayed phase isointensity with surrounding hepatic parenchyma. Gallbladder wall thickness is normal, with no gallstones or biliary sludge. Biliary system is non dilated, with expected Eovist biliary excretion on delayed images. Pancreas is normal in morphology. Spleen is normal in size and enhancement. No adrenal nodules. Both kidneys demonstrate normal size and enhancement, without hydronephrosis. Nodes and vessels: No retroperitoneal or mesenteric adenopathy by size criteria. Aorta and inferior vena cava are normal in size. Bowel and peritoneum: Unenhanced bowel loops are normal in caliber. No free fluid. Bones and soft tissues: No ventral hernias. Bone marrow is normal in overall signal. IMPRESSION: 1.5 cm in segment 3 of the left hepatic lobe remains indeterminate. Given its Eovist contrast retention on delayed phase images, differential diagnoses include transient hepatic intensity difference (THID) from underlying microvascular alteration, versus focal nodular hyperplasia (FNH). As the lesion is unable to be visualized on ultrasound, recommend 6 month followup with abdomen CT with intravenous contrast only. To reduce radiation exposure, pre- and postcontrast liver protocol abdominal CT would not be necessary. Dictated by: Neeraj Carrillo M.D. on 01/04/2018 at 8:43 Approved by: Neeraj Carrillo M.D. on 01/04/2018 at 9:16
== END ==
PROVIDERS: Visit Provider Family Medicine
DX: K76.9 Liver disease, unspecified (principal)
CPT/HCPCS: 74183; A9579